=== PATIENT | female | born 1980 | race Caucasian/White ===

== ENCOUNTER 2017-07-20 00:40 | Inpatient (IN) | payer MEDICAID ==
[2017-07-20] MEDS ORDERED: LIDOCAINE 1% (MPF) 30 ML INJ INJ (01:30)
[2017-07-20] MEDS ORDERED: MISOPROSTOL 200 MCG TAB PR ×2 (01:30→11:30)
[2017-07-20] MEDS ORDERED: OXYTOCIN 30 UNITS/LR 500 ML IV ×3 (01:30→11:30)
[2017-07-20] MEDS ORDERED: CARBOPROST 250 MCG INJ IM ×2 (01:30→11:30)
[2017-07-20] MEDS ORDERED: METHYLERGONOVINE 0.2 MG INJ IM ×2 (01:30→11:30)
[2017-07-20] MEDS ORDERED: BUTORPHANOL 2 MG INJ IV (01:30)
[2017-07-20 02:08] LABS: ADD MAN DIFF? NO
[2017-07-20 02:21] LABS: BASOPHILS % 0.4 % (0.0-2.0); EOSINOPHILS # 0.1 10^3/ul (0.0-0.5); EOSINOPHILS % 0.5 % (0.0-7.0); HEMATOCRIT 33.4 % (37.0-47.0); HEMOGLOBIN 11.7 g/dl (12.0-16.0); LYMPHOCYTES # 1.9 10^3/ul (0.8-2.9); LYMPHOCYTES % 19.8 % (15.0-51.0); MEAN CORPUSCULAR HEMOGLOBIN 30.5 pg (29.0-33.0); MEAN CORPUSCULAR VOLUME 87.2 fl (82.0-101.0); MEAN PLATELET VOLUME 9.5 fl (7.4-10.4); MONOCYTE # 0.7 10^3/ul (0.3-0.9); MONOCYTES % 7.6 % (0.0-11.0); NEUTROPHIL # 6.8 10^3/ul (1.6-7.5); NEUTROPHILS % 71.1 % (39.0-77.0); PLATELET COUNT 285 10^3/UL (140-415); RED BLOOD COUNT 3.83 10^6/ul (4.20-5.40); RED CELL DISTRIBUTION WIDTH 12.8 % (11.5-14.5)
[2017-07-20 02:21] LABS: WHITE BLOOD COUNT 9.6 10^3/ul (4.8-10.8)
[2017-07-20 02:35] LABS: INR 0.82; PROTIME 11.3 Sec (11.9-14.9); PT RATIO 0.9
[2017-07-20] MEDS: LACTATED RINGER'S 1,000 ML IV ×3 (02:52→10:45)
[2017-07-20] MEDS ORDERED: DIPHENHYDRAMINE 50 MG INJ IV (03:00)
[2017-07-20] MEDS ORDERED: FENTAnyl 2MCG/ML-ROPIV 0.2% 100 ML BAG EPI (03:00)
[2017-07-20] MEDS ORDERED: NALOXONE (0.4 MG/ML) INJ IV (03:00)
[2017-07-20] MEDS ORDERED: ONDANSETRON 4 MG INJ IV ×2 (03:00→11:30)
[2017-07-20] MEDS: OXYTOCIN 30 UNITS/LR 500 ML IV ×2 (11:05→11:50)
[2017-07-20] MEDS: IBUPROFEN 600 MG TAB PO ×3 (12:44→23:54)
[2017-07-20] MEDS: LANOLIN 7 GM TUBE TOP (15:42)
[2017-07-20] MEDS: WITCH HAZEL/GLYCERIN PAD PR (15:42)
[2017-07-20] MEDS: HYDROCODONE/APAP (5/325) TAB PO (15:53)
[2017-07-20] MEDS: BENZOCAINE 20% 56 ML SPRAY TOP (16:59)
[2017-07-20 17:03] LABS: RAPID PLASMA REAGIN NONREACTIVE (NR)
[2017-07-20] MEDS: SENNA/DOCUSATE NA (8.6MG/50MG) TAB PO (21:00)
[2017-07-20] MEDS: DIPHTH/TET/ACEL PERTUSS (ADULT) 0.5 ML VIAL IM* (23:43)
[2017-07-21] MEDS: IBUPROFEN 600 MG TAB PO ×4 (05:17→23:57)
[2017-07-21] MEDS: SENNA/DOCUSATE NA (8.6MG/50MG) TAB PO ×2 (09:03→21:20)
[2017-07-21 09:15] LABS: ADD MAN DIFF? NO
[2017-07-21 09:17] LABS: WHITE BLOOD COUNT 11.4 10^3/ul (4.8-10.8)
[2017-07-21 09:17] LABS: BASOPHIL # 0.1 10^3/ul (0.0-0.1); BASOPHILS % 0.4 % (0.0-2.0); EOSINOPHILS # 0.1 10^3/ul (0.0-0.5); EOSINOPHILS % 0.7 % (0.0-7.0); HEMOGLOBIN 11.1 g/dl (12.0-16.0); LYMPHOCYTES % 17.4 % (15.0-51.0); MEAN CORPUSCULAR HEMOGLOBIN 30.6 pg (29.0-33.0); MEAN CORPUSCULAR HGB CONC 34.7 g/dl (32.0-37.0); MEAN CORPUSCULAR VOLUME 88.2 fl (82.0-101.0); MEAN PLATELET VOLUME 9.7 fl (7.4-10.4); MONOCYTE # 0.7 10^3/ul (0.3-0.9); NEUTROPHIL # 8.5 10^3/ul (1.6-7.5); NEUTROPHILS % 74.7 % (39.0-77.0); PLATELET COUNT 204 10^3/UL (140-415); RED BLOOD COUNT 3.63 10^6/ul (4.20-5.40); RED CELL DISTRIBUTION WIDTH 13.1 % (11.5-14.5)
[2017-07-21] MEDS: INFLUENZA VIRUS VACCINE 0.5 ML SYG IM* (18:09)
[2017-07-22] MEDS: IBUPROFEN 600 MG TAB PO ×2 (06:05→12:42)
[2017-07-22] MEDS: SENNA/DOCUSATE NA (8.6MG/50MG) TAB PO (09:45)
== END 2017-07-22 16:05 | disposition home or self-care (01) | DRG 775 ==
LOC: OBT 00:40 → L-D 00:40 → OBT 01:07 → L-D 01:04 → PP1 13:13
PROVIDERS: Obstetrics & Gynecology
PROC: 10E0XZZ Delivery of Products of Conception, External Approach (ICD-10-PCS; principal; 2017-07-20)
PROC: 0KQM0ZZ Repair Perineum Muscle, Open Approach (ICD-10-PCS; 2017-07-20)
DX: O70.9 Perineal laceration during delivery, unspecified (principal); Z37.0 Single live birth; Z3A.39 39 weeks gestation of pregnancy
CPT/HCPCS: 62319; 85025; 85610; 85730; 86592; 86900; 86901; 90686; 90715